=== PATIENT | male | born 1955 | race Caucasian/White ===

== ENCOUNTER → 2023-10-14 17:50 | Outpatient (REF) | payer MEDICARE, OTHER, SELFPAY | LOC: PAVMRI 17:50 | PROVIDERS: ATTENDING PHYSICIAN Orthopaedic Surgery; FAMILY PHYSICIAN Family Medicine | DX: M25.561 Pain in right knee (principal) | CPT/HCPCS: 73721 ==

== ENCOUNTER → 2024-08-29 13:09 | Outpatient (REF) | payer MEDICARE, OTHER, SELFPAY | LOC: SDSPAT 13:09 | PROVIDERS: ATTENDING PHYSICIAN Internal Medicine; FAMILY PHYSICIAN Family Medicine | DX: I48.0 Paroxysmal atrial fibrillation (principal) | CPT/HCPCS: 93005 ==

== ENCOUNTER 2024-09-19 09:32 | Day surgery (SDC) | payer MEDICARE, OTHER, SELFPAY ==
[2024-08-29 13:18] VITALS: BMI 32.9
== END 2024-09-19 11:04 | disposition home or self-care (01) ==
LOC: CATH 09:32
PROVIDERS: ATTENDING PHYSICIAN Internal Medicine; FAMILY PHYSICIAN Family Medicine
DX: I48.0 Paroxysmal atrial fibrillation (principal); I50.32 Chronic diastolic (congestive) heart failure; E78.5 Hyperlipidemia, unspecified; K21.9 Gastro-esophageal reflux disease without esophagitis; Z87.891 Personal history of nicotine dependence; Z79.01 Long term (current) use of anticoagulants
CPT/HCPCS: 92960; 93005

== ENCOUNTER 2024-12-08 16:58 | Inpatient (IN) | payer MEDICARE, OTHER, SELFPAY ==
[2024-12-08] VITALS (7 sets, daily range): BP systolic 131–175; BP diastolic 63–87; BMI 32.0
--- NOTE | 2024-12-08 15:34 | ED.GENMED ---
History of Present Illness
General
Chief Complaint: Heart Rate Problem
Source: patient, records and spouse
Exam Limitations: none
Time Seen by Provider: 12/08/24 15:26
Nursing documentation reviewed up to this point in time: agreed with
History of Present Illness
History of Present Illness:
69-year-old male with a past medical history of GERD, atrial fibrillation (on Eliquis, follows with Dr. Loera) who presents to the ER for evaluation of scapular pain. Patient reports symptoms have been ongoing for about 1 month. He reports pain
in the right scapula that radiates through to the right side of the chest. He describes the pain as sharp. No clear triggering or relieving factors noted. He says he has been taking Tums and omeprazole but none of these things seem to work. His
says that in addition to the scapular pains he has been complaining of intermittent 'heartburn' over the past month as well which is more of a substernal aching consistent with his prior GERD symptoms. Patient says that symptoms are rather
sporadic sometimes multiple times a week sometimes once a week. They have been lasting for about 10 minutes at a time. Last night he had an episode that lasted for 30 minutes and was much more intense. His symptoms never completely resolved this
morning he still has a very mild aching in the right scapular and ultimately his convinced him to go to his primary care physician. There he had an EKG that showed some subtle changes compared to his prior and was sent to the ER to be
evaluated. He denies any shortness of breath. Denies any nausea or vomiting. He denies any abdominal pains. He denies any relation to food. No swelling or pain in the legs. He denies any other complaints. He has not had any trauma to the
area. He does report in the distant past he had some muscle tears in his shoulder on the right but says that the symptoms presently do not seem to be related to movement.
Past History
Past History
ED Past Medical History: GERD
ED Past Surgical History: Other (Bilateral gynecomastia)
Social History
Tobacco: Non-smoker
Alcohol: None
Drug: None
Personal:
Living: with family
Employment: Retired
Family History
Family History: Other (Brother with history of atrial fibrillation)
Review of Systems
Review of Systems
All Other Systems: ROS reviewed and negative except as documented in HPI and ROS
Constitutional: Denies fever or chills
Respiratory: Denies cough or trouble breathing
Cardiac: Reports chest pain; Denies palpitations
ABD/GI: Reports abdominal pain; Denies nausea or vomiting
: Denies flank pain
Musculoskeletal: Reports back pain (Scapular pain); Denies edema or neck pain
Neurological: Denies dizzy or headache
Phy Exam
Physical Exam
Physical Exam:
General: Awake, alert, oriented x3; no acute distress
Head: Normocephalic, atraumatic
Eyes: Conjunctiva normal, sclera anicteric
Throat: Airway intact, handling secretions
Neck: Trachea midline, supple without meningismus
Lungs: Clear to auscultation bilaterally, no wheezing, rales, rhonchi
Heart: Regular rate and rhythm, no murmurs, gallops, or rubs appreciated
Abd: Soft, non distended, nontender to deep palpation
Back: No tenderness in the right scapular region or in the thoracic or lumbar spine along the midline
Neuro: Grossly intact
Skin: No rash in the area of concern
Extremities: No edema in extremities, no calf tenderness, equal pulses in all extremities
Scores
Heart Failure Risk
Heart Failure Risk Score: Not Applicable
Heart Score for Chest Pain Patients
STEMI patient?: Not applicable
Withdrawal Assessment of Alcohol
Withdrawal Assessment Completed?: Not applicable
Course
Orders/Labs/Results
Orders:
Orders
12/08/24 15:13
EKG [Electrocardiogram (*1)] Urgent
Reason for Study: Chest Pain
EKG- Treatment ONCE
12/08/24 15:26
CR Chest - 2 Views Urgent
Comment:
Reason For Exam: scapular pain
12/08/24 15:35
Complete Blood Count/With Diff Urgent
Comprehensive Metabolic Panel Urgent
D-Dimer Urgent
Lipase Urgent
NT-proBNP Urgent
PTT Urgent
Prothrombin Time Urgent
Troponin I Urgent
12/08/24 16:21
Aspirin Chewable [Low Strength Aspirin] 324 mg PO NOW STA
Nitroglycerin Ointment [Nitro-Bid] 1 inch TOPICAL NOW STA
12/08/24 16:27
Nitroglycerin Ointment [Nitro-Bid] 0.5 inch TOPICAL NOW STA
12/08/24 16:39
Admit/Transfer Patient As Directed
Co-Sign Provider:
Level of Care: Inpatient admission
Assign to:: IVU
Physician / Group: wilner
Diagnosis: nstemi
Reason for Hospitalization: nstemi
Expected length of stay greater than two midnights?: Yes
ELOS- Estimated Length of Stay in days: 2
I certify the patient meets the requirements for IP care: Yes
Code Status As Directed
Resuscitation Status: Full Code
PRN Pain Medication Management As Directed
May give lesser potent ordered pain med per pt: Yes
preference::
Protocol:: Medication orders for pain may be administered in a
manner that supports deferring to patient preference
when the pt is:
- Requesting an ordered lesser potent pain medication.
Least to most potent pain medications are defined
as: acetaminophen < NSAID < tramadol < opioids
(morphine, oxycodone, hydromorphone).
- Requesting a lesser dose of the same medication IF
ORDERED.
- Requesting a less intrusive route of administration
if both routes are prescribed by the provider (PO <
IV).
Abnormal Lab Results
12/08/24
15:35
RBC 4.48 L 10^6/uL
(4.70-6.10)
MCHC 32.9 L g/dL
(33.0-37.0)
Abs Immat Gran (auto) 0.1 H 10^3/uL
(0-0.05)
Absolute Monos (auto) 0.7 H 10^3/uL
(0.1-0.6)
Immature Gran % 0.7 H %
(0-0.5)
PT 15.1 H Sec
(11.4-14.6)
APTT 40.8 H Sec
(23.4-35.0)
Troponin I 0.589 H* ng/ml
12/08/24 15:35
12/08/24 15:35
Vital Signs
Initial and Last Documented VS:
Initial Vital Signs
Temp Pulse Resp BP Pulse Ox
36.4 C 74 18 175/86 100
12/08/24 15:19 12/08/24 15:19 12/08/24 15:19 12/08/24 15:19 12/08/24 15:19
Last Documented Vital Signs
Temp Pulse Resp BP Pulse Ox
36.4 C 68 17 131/84 98
12/08/24 15:19 12/08/24 16:36 12/08/24 15:29 12/08/24 16:36 12/08/24 16:30
MDM/Problems Addressed
Differential Diagnosis Includes:
Muscular pain, anginal equivalent/ACS, pulmonary embolism, pneumothorax, pneumonitis/pneumonia, referred pain from cholelithiasis/cholecystitis or pancreatitis
MDM/Problems Addressed:
69-year-old male presents for evaluation of right scapular pain intermittent for the past month more intense last night. Had some subtle EKG changes at his primary care physician's office. Hypertensive here but otherwise acceptable vitals.
Physical exam as above. He is triage EKG here shows some subtle changes in the anterior leads�very slight ST elevation with biphasic T wave. No reciprocal changes. Does not meet STEMI criteria. Plan to place an IV check labs including a CBC and a
CMP, troponin, D-dimer, coags. Will check lipase. Check a chest x-ray. Will monitor very closely reassess after the above.
Labs reviewed: CBC and CMP no clinically significant abnormalities. D-dimer negative. His troponin is elevated at 0.589; overall clinical picture concerning for ACS/NSTEMI. Will treat with some Nitropaste and give aspirin. His last dose of
Eliquis was at noon and so for this reason we will hold off on heparin for the time being. Discussed with cardiology for consultation. Discussed case with hospitalist for admission.
Discussed with cardiology who recommended initiating heparin infusion. Order placed. Admitted to hospitalist service.
Acute Exacerbation and/or Progression of Chronic Illness:
Acutely hypertensive
Acute Exacerbation and/or Progression of Chronic Illness: HTN
*Radiology
Radiology exam reviewed: radiology read reviewed
*Pulse Oximetry
SaO2: 100
Oxygen Mode of Delivery: Room air
Patient hypoxic: no (100%)
*EKG
Interpreted by ED Provider?: Yes
Heart Rate: 75
Rate: normal
Rhythm: sinus and PAC's
[place]: left axis deviation
Interval: normal interval
QRS Pattern: normal QRS
Ischemia: other (Subtle ST elevation with biphasic T wave in anterior leads)
*Critical Care Note
Total Time (30-74mins, 75-104mins- exclusive of procedures): Not Applicable
Data Reviewed
Review of Other/Old Records Reveals: Labs and Records
Source: patient, records and spouse
Patient Management
Discussion with other providers: Hospitalist (Discussed with hospitalist) and Primer Supervisor (Discussed with mastic sprayer)
Escalation/DeEscalation of care consider admission/obs:
Admission indicated
ED Attending Note
-
Portions of this chart may have been created with voice recognition software.� Occasional wrong word or��sound alike� substitutions may have occurred due to the inherent limitations of voice recognition software.
Discharge Plan
Departure
Patient Disposition: Admit
Date of Disposition: 12/08/24
Time of Disposition: 16:29
Admit to doctor: Wilner
Presentation/result/management discussed w/ accepting MD/DO: Hospitalist
Discharge Problem:
Non-ST elevation DC (NSTEMI)
Interventions
Interventions:
*Risk Screen - Suicide Last Done: 12/08/24 15:20
*General Assessment Last Done: 12/08/24 15:20
*Neglect/Abuse Screening Last Done: 12/08/24 15:20
*ED COVID-19 Vaccine History Last Done: 12/08/24 15:20
*ED Influenza Vaccine History Last Done: 12/08/24 15:20
ED- Cardiac Assessment Last Done: 12/08/24 15:20
ED- Pulmonary Assessment Last Done: 12/08/24 15:20
[2024-12-08 15:54] LABS: INR 1.14; PT 15.1 Sec (11.4-14.6)
[2024-12-08 15:55] LABS: APTT 40.8 Sec (23.4-35.0); Hematocrit 41.9 % (39.0-52.0); Hemoglobin 13.8 g/dL (13.0-18.0); Mean Corp Hgb Conc. 32.9 g/dL (33.0-37.0); Mean Corpuscular Volume 93.5 fL (80.0-94.0); Nucleated Red Blood Cells % 0 % (-); Platelet Count 232 10^3/uL (130-400); Red Cell Dist. Width 13.4 % (11.5-14.5)
[2024-12-08 15:57] LABS: D-Dimer 0.29 ug/mlFEU (0.00-0.50)
[2024-12-08 16:17] LABS: ALT (SGPT) 17 U/L (0-50); AST (SGOT) 24 U/L (17-59); Albumin 4.4 g/dl (3.5-5.0); Alkaline Phosphatase 90 U/L (38-126); Blood Urea Nitrogen 19 mg/dl (9-20); Calcium 9.3 mg/dl (8.4-10.2); Carbon Dioxide 23 mmol/L (22-30); Chloride 106 mmol/L (98-107); Glucose 99 mg/dl (70-99); Lipase 80 U/L (23-300); Potassium 4.7 mmol/L (3.5-5.1); Sodium 138 mmol/L (135-145); Total Protein 7.0 g/dl (6.3-8.2); eGFR > 60.00
[2024-12-08 16:20] LABS: Troponin I 0.589 ng/ml
[2024-12-08] MEDS: LOW STRENGTH ASPIRIN 324 MG PO (16:34)
[2024-12-08] MEDS: NITRO-BID 0.5 INCH TOPICAL (16:36)
--- NOTE | 2024-12-08 16:59 | CON.CAR ---
Addendum entered and electronically signed by Dain Loera MD 12/08/24 17:49:
Patient seen and examined in collaboration with HOUSE SUPERVISOR; agree with below.
- 69-year-old male well-known to me in the outpatient setting with paroxysmal atrial fibrillation (on Eliquis) chronic HFpEF, hyperlipidemia, and obesity presenting with scapular pain. However, the patient states that he has been having midsternal
chest pain symptoms, which she thought was heartburn over the past month and recurrent right scapular pain.
- EKG today shows some anterior T wave changes (biphasic); cardiac troponin is mildly elevated.
- NSTEMI: Start heparin drip, full-dose aspirin, nitroglycerin paste.
- Cardiac catheterization tomorrow a.m.; n.p.o. after midnight.
- Will obtain an echocardiogram tomorrow prior to cath to reassess cardiac function as patient has had recurrent symptoms over the past month.
- air sampling and monitoring.
- Start statin.
- Hold Eliquis tonight for procedure tomorrow AM.
Original Note:
Consultation
Consultation Request
Date/Time Consultation Requested: 12/08/241633
Date/Time Consultation Performed: 12/08/241644
Requesting Provider: Dr. Padilla
Performing Provider: Juliette ROCHA for Dr. Loera
Reason for Consultation: NSTEMI
Medical History
-
Chief Complaint: scapular pain
History of Present Illness:
69 y/o male (patient of Dr. Loera) with PAF (hx cardioversions) on Eliquis, HFpEF, mild HLD, obesity, and GERD who is here for evaluation of left scapular pain. This has been intermittent and lasts 2-10 minutes typically, but last night lasted
about 30 minutes. His is at bedside and reports that he has also had heartburn episodes since about 1 month ago, and one particular episode where he was clammy and nauseated. At the time of my assessment, he is pain free. He is in no distress.
He has been given ASA, heparin, nitro. There are EKG changes (anterior) and troponin is 0.6.
Past Medical History
Past Medical History: Arrhythmias, CHF, GERD and Hypercholesterolemia
Social History
Personal:
Living: With Family
Family History
Family History: Reviewed & Not Pertinent
Allergies / Home Medications
Allergy/AdvReac Type Severity Reaction Status Date / Time
shellfish derived Allergy Hives Verified 12/08/24 15:21
�Medication �Instructions �Recorded �Confirmed �Type
apixaban 5 mg tablet (Eliquis) 5 mg PO BID 30 days #60 tabs 08/09/21 09/19/24 Rx
acetaminophen 500 mg tablet 1,000 mg PO Q6HPRN PRN pain 08/22/21 09/19/24 History
(Tylenol Extra Strength)
glucosamine sulfate dipotassium Cl 2 cap PO DAILY 08/22/21 09/19/24 History
500 mg-chondroitin 400 mg capsule
(Glucosamine Sulfate 2
KCL-Chondroitin)
omeprazole 40 mg capsule,delayed 40 mg PO HS PRN indigestion 08/22/21 09/19/24 History
release
Review of Systems
-
History Source: Patient
All other systems: Negative unless noted (as noted above (scapular pain, heartburn, clammy, nausea))
Physical Exam
Vital Signs
Temp Pulse Resp BP Pulse Ox
97.5 F 68 17 131/84 98
12/08/24 15:19 12/08/24 16:36 12/08/24 15:29 12/08/24 16:36 12/08/24 16:30
Lab Results
12/08/24 15:35
12/08/24 15:35
Troponin I 0.589 ng/ml H* 12/08/24 15:35
Zvp-G-Eajxwjbgwuj Pept 2590 pg/ml 12/08/24 15:35
Physical Exam
General: Well Developed, Well Nourished and No Apparent Distress
HEENT: Normocephalic and Anicteric
Respiratory: Clear and Non Labored Respirations
Cardiac: Regular Rhythm
Musculoskeletal: No Edema
Skin: Warm and Dry
Neuro: AO x 3
Psych: Calm
Impression / Plan
-
NSTEMI:
-this diagnosis is a threat to life
-pain free
-follow EKGs and troponins
-echo in AM
-cheesemaking laborer in AM
-ASA and nitrates given. Heparin started. Continue IV heparin, which requires intensive monitoring
-add statin, check lipids and HGBA1C
PAF:
-stable in SR
-on Eliquis as OP; on heparin as above
HFpEF:
-volume stable
-check echo
HLD:
-check lipids
Obesity:
-would benefit from weight loss moving forward
Data Reviewed
-
EKG: Tracing Personally Visualized and interpreted (SR with PAC's, LAD, ST/T abnormalities anterior)
Labs: Labs Reviewed by me
Scores
HARSH for NSTEMI
Age >/= 65: Yes
>/=3 CAD risk factors-HTN,High Chol,Fam hx CAD,DM,Smoker: No
Known CAD (stenosis >/=50%): No
ASA use in past 7 days: No
Severe angina (>/= 2 episodes in 24 hrs): Yes
EKG ST Changes >/= 0.5mm: No
Positive cardiac marker: Yes
Score: 3
Risk at 14 days-mortality, new/recurrent NE, severe ischemia: Intermediate Risk- 13% Risk at 14 days- all cause mortality, new or recurrent NE, or severe recurrent ischemia requiring urgent revascularization
[2024-12-08] MEDS: HEPARIN 25000 UNITS/250 ML IV (17:50)
[2024-12-08] MEDS: HEPARIN 4000 UNITS IV (17:53)
--- NOTE | 2024-12-08 17:55 | HPS.HSE ---
Family Physician
-
Family Physician: Kade Nair
Chief Complaint
-
scapular pain
History of Present Illness
69-year-old male past medical history of paroxysmal atrial fibrillation on Eliquis, HFpEF, hyperlipidemia, GERD, obesity, presenting with scapular pain. �For around 1 month he has been having pain in his right scapula that radiates through to the
right side of the chest. �Pain is sharp. �No clear triggering or relieving factors. �Been taking Tums and omeprazole without improvement. �Is also been having heartburn over the past month intermittently which is described as substernal aching
consistent with prior GERD symptoms. �Symptoms sometimes occur a few times a week lasting 10 minutes at a time. �Last night he had an episode lasted for 30 minutes and was much more intense. �Symptoms did not resolve this morning and he still had
very mild aching in the right scapular region. �His convinced him to go to primary care physician. �EKG which showed some subtle changes compared to prior and was sent to the emergency room.
He denies any shortness of breath. �Denies nausea or vomiting. �Denies abdominal pain. �Denies any relation of the pain to food. �Denies swelling or pain in the legs. �Denies any trauma. �He has had muscle tears in his shoulder in the past on the
right but symptoms are not related to movement at this time.
Medical History
Past Medical History
Past Medical History: Reports Other (paroxysmal atrial fibrillation on Eliquis, HFpEF, hyperlipidemia, GERD, obesity)
Past Surgical History: Reports None
Social History
Tobacco: Non-smoker
Alcohol: None
Drug: None
Family History
Family History: Not pertinent
Allergies / Home Medications
Allergies reflects when Allergies were last updated in [facility].
Home Medications with original date entered in [facility]
Allergy/Medication List:
Allergies
Allergy/AdvReac Type Severity Reaction Status Date / Time
shellfish derived Allergy Hives Verified 12/08/24 15:21
Home Medications
apixaban 5 mg tablet (Eliquis) 5 mg PO BID 30 days #60 tabs 08/09/21
acetaminophen 500 mg tablet (Tylenol Extra Strength) 1,000 mg PO Q6HPRN PRN pain 08/22/21
glucosamine sulfate dipotassium Cl 500 mg-chondroitin 400 mg capsule (Glucosamine Sulfate 2 KCL-Chondroitin) 2 cap PO DAILY 08/22/21
omeprazole 40 mg capsule,delayed release 40 mg PO HS PRN indigestion 08/22/21
Review of Systems
-
Constitutional: Reports No Symptoms
EENT: Reports No Symptoms
Respiratory: Reports No Symptoms
Cardiac: Reports No Symptoms
Abdomen/GI: Reports No Symptoms
: Reports No Symptoms
Musculoskeletal: Reports No Symptoms
Skin: Reports No Symptoms
Neurological: Reports No Symptoms
Endocrine: Reports No Symptoms
Hematologic/Lymphatic: Reports No Symptoms
Psych: Reports No Symptoms
Physical Exam
Vital Signs
Vital Signs
Temp Pulse Resp BP Pulse Ox
97.5 F 63 17 167/87 98
12/08/24 15:19 12/08/24 17:15 12/08/24 15:29 12/08/24 17:00 12/08/24 17:15
Physical Exam
General: Well Developed, Well Nourished and No Apparent Distress
HEENT: NormoCephalic, Moist mucous membranes and Atraumatic
Respiratory: Clear
Cardiac: S1/S2 and Regular Rhythm; No Murmur or Rub
GI: Soft, Non Tender, Non Distended and Normal Bowel Sounds; No Organomegaly
Rectal: Deferred by Provider
Musculoskeletal: No Clubbing, No Cyanosis and No Edema
Skin: No Rash
Neuro: Nonfocal/grossly intact
Laboratory Results
-
12/08/24 15:35
12/08/24 15:35
Laboratory Results
PT 15.1 Sec (11.4-14.6) H 12/08/24 15:35
INR 1.14 12/08/24 15:35
APTT 40.8 Sec (23.4-35.0) H 12/08/24 15:35
Total Bilirubin 0.7 mg/dl (0.2-1.3) 12/08/24 15:35
AST 24 U/L (17-59) 12/08/24 15:35
ALT 17 U/L (0-50) 12/08/24 15:35
Alkaline Phosphatase 90 U/L (38-126) 12/08/24 15:35
Troponin I 0.589 ng/ml H* 12/08/24 15:35
Lipase 80 U/L (23-300) 12/08/24 15:35
Data Reviewed
-
Lab Data: Labs Reviewed by me
Old Records: Reviewed
Impression/Plan
-
IMPRESSION:
PLAN:
# NSTEMI
- Troponin of 0.589
- EKG shows sinus rhythm with PACs, T wave inversions in anterior leads
-Aspirin given, continue '
-start stain
- Trend troponins
-Check A1c and lipid panel
- Stop Eliquis and start heparin drip
-Check echo
- Cardiology consulted
-NPO past midnight for potential cath tomorrow
Paroxysmal atrial fibrillation
- Stop Eliquis and start heparin drip
Chronic HFpEF
Hyperlipidemia
GERD
Obesity
Full code
DVT prophylaxis�heparin drip
Cardiac diet
[2024-12-08 19:12] LABS: Troponin I 0.497 ng/ml
[2024-12-08] MEDS: CRESTOR 20 MG PO (20:39)
[2024-12-08 21:08] LABS: HDL Cholesterol 44 mg/dl; LDL Cholesterol, Calculated 142 mg/dl; Very Low Density Lipoprotein 27 mg/dl (0-30)
[2024-12-08 21:21] LABS: Troponin I 0.438 ng/ml
[2024-12-08] MEDS: TYLENOL 1000 MG PO (23:39)
[2024-12-09] VITALS (11 sets, daily range): BP systolic 130–175; BP diastolic 59–85
[2024-12-09 00:10] LABS: APTT 137.7 Sec (23.4-35.0)
--- NOTE | 2024-12-09 01:37 | PTCARENOTE ---
Pt admitted to room 2251 for NSTEMI. Pt NSR on monitor, VSS. C/o scapula pain 0.5/10. Heparin gtt per protocol. Pt independent with mobility. Pt oriented to the room. NPO in am
[2024-12-09 04:37] LABS: Hematocrit 36.7 % (39.0-52.0); Hemoglobin 12.6 g/dL (13.0-18.0); Mean Corp Hgb Conc. 34.3 g/dL (33.0-37.0); Mean Corpuscular Volume 94.3 fL (80.0-94.0); Nucleated Red Blood Cells % 0 % (-); Platelet Count 188 10^3/uL (130-400); Red Cell Dist. Width 13.3 % (11.5-14.5)
[2024-12-09 04:42] LABS: Troponin I 0.351 ng/ml
[2024-12-09 04:54] LABS: ALT (SGPT) 14 U/L (0-50); AST (SGOT) 20 U/L (17-59); Albumin 3.5 g/dl (3.5-5.0); Alkaline Phosphatase 99 U/L (38-126); Blood Urea Nitrogen 21 mg/dl (9-20); Calcium 8.6 mg/dl (8.4-10.2); Carbon Dioxide 22 mmol/L (22-30); Chloride 111 mmol/L (98-107); Estimated Creatinine Clearance 93 ml/min; Glucose 86 mg/dl (70-99); Potassium 4.5 mmol/L (3.5-5.1); Sodium 138 mmol/L (135-145); Total Protein 5.9 g/dl (6.3-8.2); eGFR > 60.00
--- NOTE | 2024-12-09 07:45 | PTCARENOTE ---
Assumed care of pt from prev nsg shift; Pt drowsy but easily arousable, AAOx3 w/no c/o CP or SOB. Pt does c/o 10 bilat low back pain, which is chronic for him. This RN advised resident & awaiting PRN PO Tylenol order. Pt's VSS w/HR in the
40's-60's & BP 147/77. Pt is SB/SR on telemetry monitoring. Pt NPO since 0000, awaiting cardiac cath today. Pt w/no addtl needs at this time. Call bundy within reach.
--- NOTE | 2024-12-09 08:14 | CARDSERVLU ---
Echocardiogram with [facility] completed after protocol screening completed. Allergies verified.
Patent IV site: _Left antecubital site clear____
IV site flushed with 0.9% NaCl pre and post administration.
Diluted bolus method utilized to enhance visualization of ventricular edmond.
Total volume given: __4_ mL
Patient tolerated all procedures well without complications.
--- NOTE | 2024-12-09 08:49 | W.PN.HOSP.TC ---
Today's Communication/Plan
-
Plan to do cardiac catheterization today
Assessment / Plan
Assessment / Plan
Impression
Patient is a 69-year-old male, with past medical history of paroxysmal atrial fibrillation (history of cardioversions, currently on Eliquis), HFpEF, mild hyperlipidemia, obesity and GERD who presented with right scapular pain. He has had an episode
of heartburn over the past month and recurrent right scapular pain that was usually 2 to 10 minutes and then resolved but this time it lasted for about 30 minutes and that is why he decided to come to the ER. EKG done in the ER showed biphasic T
waves along with mild troponin elevation of 0.6. He was given full dose aspirin and heparin infusion was started along with nitroglycerin.
Echo done this morning
Ejection fraction 50 to 55%, right ventricular size and systolic function within normal limits, mild to moderate MR, mild TR and apical hypokinesis
Echocardiogram in 2021 was 55 to 60%
Conditions present prior to admission
Paroxysmal atrial fibrillation
HFpEF
Hyperlipidemia
GERD
Obesity
Assessment/plan
#NSTEMI
Presented with right scapular pain, EKG with biphasic T waves in anterior leads, troponin 0.6
Troponins trending down ,proBNP 2590
Echo done this a.m.-mild decrease in ejection fraction from 55 to 60% to 50 to 55%, with newly noticed apical hypokinesis
Lipid panel looks fine except for total cholesterol of 213, lipase normal, HbA1c pending
Cardiology recommendations appreciated
Continue aspirin, heparin infusion and nitro along with statins
Eliquis on hold
Patient n.p.o. since midnight, plan to do cardiac catheterization today
#Paroxysmal atrial fibrillation
Stable, normal sinus rhythm, rate controlled
Takes Eliquis on outpatient basis which is currently on hold-patient is on heparin infusion
#HFpEF
Echo today shows an ejection fraction of 50 to 55%
No signs of volume overload
#Hyperlipidemia
Lipid panel looks good
Continue statins
#Obesity
Affects all aspects of care
DVT prophylaxis-heparin
CODE STATUS-full code
Anticipated Discharge: 24 - 48 hours
Subjective/Interval History
-
Date of Service: December 09, 2024
Patient seen and examined at bedside
Overnight no events, n.p.o. since midnight
Reports some mild pain in left scapula
Reports some back pain
Objective Data
-
Labs:
Laboratory Results
12/08/24 12/09/24 12/09/24
23:41 03:30 08:39
WBC 6.9
Hgb 12.6 L
Hct 36.7 L
Plt Count 188
APTT 137.7 H Pending
Sodium 138
Potassium 4.5
Chloride 111 H
Carbon Dioxide 22
BUN 21 H
Creatinine 1.0
Glucose 86
Calcium 8.6
Total Bilirubin 0.4
AST 20
ALT 14
Alkaline Phosphatase 99
Vital Signs:
Vital Signs
Temp Pulse Resp BP Pulse Ox
97.5 F 62 18 133/59 98
12/09/24 08:31 12/09/24 06:30 12/09/24 08:31 12/09/24 03:29 12/09/24 08:31
I&O
12/08/24 12/09/24 12/10/24
06:59 06:59 06:59
Intake Total 395 / 395
Balance 395 / 395
Review of Systems
-
All other systems: Reviewed and negative
Physical Exam
-
General: Well Developed, Well Nourished and No Apparent Distress
HEENT: Normocephalic, Atraumatic and Moist Mucous Membranes
Respiratory: Clear to Auscultation; Negative Wheezes, Rales or Rhonchi
Cardiac: Regular Rhythm and S1/S2; Negative Murmur, Rub or Gallop
GI: Soft, Nontender and Normal Bowel Sounds
Musculoskeletal: No Clubbing, No Cyanosis and No Edema
Skin: Warm and Dry
Neuro: Awake, AO x 3 and Nonfocal/Grossly Intact
Psych: Calm
[2024-12-09 09:05] LABS: APTT 96.3 Sec (23.4-35.0)
[2024-12-09 09:21] LABS: Troponin I 0.264 ng/ml
[2024-12-09] MEDS: LOW STRENGTH ASPIRIN 81 MG PO (09:38)
[2024-12-09] MEDS: TYLENOL 1000 MG PO ×2 (09:39→19:40)
[2024-12-09 10:43] LABS: Glycohemoglobin (HgbA1c) 5.7 % (4.0-5.6)
[2024-12-09] MEDS: HEPARIN 25000 UNITS/250 ML IV (12:28)
--- NOTE | 2024-12-09 13:09 | PTCARENOTE ---
Report to Sherry; Pt taken over to laboratory scientist in bed. Heparin IV drip now on hold.
[2024-12-09 14:10] LABS: ACT-LR - POC 368 Seconds (116-155)
--- NOTE | 2024-12-09 14:19 | CM ---
Chart reviewed. Patient is independent of ADLS, lives with his in a 2 S[address], 2 LYSSA, 0 DME. Patient is currently in the lab animal technician. Plan is for the patient to return home. CM to follow
[2024-12-09 14:44] LABS: ACT-LR - POC 397 Seconds (116-155)
--- NOTE | 2024-12-09 15:46 | W.PN.CD ---
Today's Communication / Plan
-
s/p BREE to LAD, 1 week triple therapy, then eliquis/plavix
Impression / Plan
-
NSTEMI:
CAD s/p PCI with BREE to LAD
-pain free
-echo with distal LAD RWMA, normal EF
-PCI with culprit prox LAD 90% stenosis s/p DESx1 (2.75x18 posted to 3.0/3.25), lots of non-culprit plaque in mid-LAD, circ OM, distal RCA
-high intensity statin for goal LDL<55
-aggressive secondary prevention with aggressive control of risk factors
-DAPT with Plavix/ASA, triple therapy with Eliquis/Plavix/ASA for 1 week, then Plavix/Eliquis for 1 year
PAF:
-stable in SR
-on Eliquis, resume tonight
HFpEF:
-volume stable
-LVEDP 30 on cath in setting of systemic hypertension
HLD:
-LDL 142, goal <55, has been started on high intensity statin
Obesity:
-would benefit from weight loss moving forward
Physical Exam
Vital Signs/Labs
Vital Signs
Temp Pulse Resp BP Pulse Ox
36.4 C 64 17 145/73 99
12/09/24 15:30 12/09/24 15:30 12/09/24 15:30 12/09/24 11:30 12/09/24 15:30
12/08/24 12/09/24 12/10/24
06:59 06:59 06:59
Actual Weight 116.3 kg
12/09/24 03:30
12/09/24 03:30
PT 15.1 Sec (11.4-14.6) H 12/08/24 15:35
INR 1.14 12/08/24 15:35
APTT 96.3 Sec (23.4-35.0) H 12/09/24 08:39
Triglycerides 139 mg/dl (10-149) 12/08/24 20:47
LDL Cholesterol, Calc 142 mg/dl 12/08/24 20:47
VLDL Cholesterol, Calc 27 mg/dl (0-30) 12/08/24 20:47
HDL Cholesterol 44 mg/dl 12/08/24 20:47
12/08/24
15:35
Mqh-Z-Tbqidxteagg Pept 2590
LAB Results
12/08/24 12/08/24 12/08/24
15:35 18:33 20:47
Troponin I 0.589 H* 0.497 H* 0.438 H*
12/09/24 12/09/24
03:30 08:39
Troponin I 0.351 H* 0.264 H*
Physical Exam
Constitutional: Comfortable
Cardiovascular: Rhythm/rate is irregular
Respiratory: Respiratory effort normal
Neuro/Psych: AO x 3
Data Reviewed
-
Date of Service: December 09, 2024
Medical Decision Making: Reviewed Test Results
EKG: Tracing Personally Visualized and interpreted
Echo: Tracing Personally Visualized and interpreted
Labs: Labs Reviewed by me
--- NOTE | 2024-12-09 16:34 | ITS.CL.PN ---
Rel[employer]er - Procedure Note
Procedure
Procedure Note:
CARDIAC CATHETERIZATION REPORT
Date of Procedure: 12/09/2024
Referring: Dr. Dain Loera MD
Indication: NSTEMI
PROCEDURE(S)
1. left heart catheterization
2. coronary angiography
3. IVUS LAD
4. PCI with BREE to LAD
ACCESS: 6F right radial artery (closure: radial band)
CATHETERS
1. 6F JR4
2. 6F JL3.5
3. 6 [place] EBU3.75 guide
MODERATE SEDATION: 60 minutes of moderate sedation was utilized. An independent medical assistant float was present to assist with and help manage the patient's level of consciousness and physiologic status.
HEMODYNAMIC DATA
LV 184/19 (EDP 30) mmHg
AO 183/95 (mean 124) mmHg
CORONARY ANGIOGRAPHY
Dominance: Right
LM: Large, normal
LAD: Large vessel giving rise to two moderate caliber diagonal branches. There is a hazy, thrombotic, 90% stenosis in the proximal vessel spanning the D1 takeoff with diffuse moderate plaque extending distally. There is a 40% stenosis spanning the
D2 takeoff. The mid to distal LAD is largely disease-free.
Ramus: Large bifurcating vessel. There is a focal 40% stenosis before the bifurcation.
LCx: Large vessel giving rise to a moderate caliber LPL branch. There is a focal 50% stenosis in the ostial circumflex.
RCA: Large vessel giving rise to a moderate caliber RPDA and two moderate caliber RPL branches. There is a 50% focal stenosis just before the bifurcation of the RPDA and RPAV.
PCI with BREE to LAD
Heparin was given to achieve ACT greater than 300. The left main was intubated with an EBU 3.75 guide catheter and a Runthrough placed in the distal LAD. Initial lesion preparation was performed with a 2.0 mm semicompliant balloon with full
expansion. IVUS was performed demonstrating heavy plaque burden throughout the proximal to mid LAD with a distal reference vessel diameter of 3.0 mm and proximal reference vessel diameter 3.25 mm. IVUS was used to identify proximal and distal
healthy landing zones which were angiographically marked to allow for determination of optimal stent length and location. Based on this a 2.75 x 18 mm [place] frontier drug-eluting stent was delivered and deployed followed by post dilation to the
distal edge with a 3.0 mm NC balloon and elsewhere with a 3.25 mm NC balloon. Final IVUS demonstrated full stent expansion, apposition, and appropriate sizing with no edge dissections. Final angiography demonstrated an excellent result with notable
diffuse moderate plaque extending distally. The decision was made not to extend the stent further as this disease was felt to be nonculprit, nonobstructive, and would require jailing of the second diagonal branch with the risk of plaque shift and
sidebranch closure. The wire and guide were removed and a TR band placed. The patient was taken to the recovery area and family updated.
RADIATION: dose 1678 mGy; DAP 86 Gy*cm2; fluoroscopy time 17.9 min
CONCLUSIONS
1. Moderately elevated LV filling pressure in the setting of systemic hypertension and and no aortic stenosis.
2. Obstructive coronary artery disease as described with culprit 90% thrombotic stenosis of the proximal LAD s/p PCI with DESx1 (2.75x18 Misael [place] BREE post-dilated with a 3.0 NC balloon to the distal edge and a 3.25 NC balloon elsewhere)
RECOMMENDATIONS
1. Triple therapy with ASA/Plavix/Eliquis for 1 week followed SAPT+OAC with Plavix/Eliquis for 1 year.
2. Aggressive secondary prevention of coronary artery disease
Copy to: Dr. Dain Loera MD (stna); Dr. Kade Nair MD (PCP)
Signed: Marko Donaldson MD, PhD
[2024-12-09] MEDS: CRESTOR 40 MG PO (17:17)
[2024-12-09] MEDS: TOPROL XL 25 MG PO (17:18)
[2024-12-09] MEDS: ELIQUIS 5 MG PO (20:06)
[2024-12-10 03:54] VITALS: BP 127/99
[2024-12-10 04:27] LABS: Hematocrit 40.4 % (39.0-52.0); Hemoglobin 13.5 g/dL (13.0-18.0); Mean Corp Hgb Conc. 33.4 g/dL (33.0-37.0); Mean Corpuscular Volume 94.6 fL (80.0-94.0); Nucleated Red Blood Cells % 0 % (-); Platelet Count 216 10^3/uL (130-400); Red Cell Dist. Width 13.3 % (11.5-14.5)
[2024-12-10 04:54] LABS: Blood Urea Nitrogen 17 mg/dl (9-20); Calcium 8.9 mg/dl (8.4-10.2); Carbon Dioxide 27 mmol/L (22-30); Chloride 108 mmol/L (98-107); Estimated Creatinine Clearance 93 ml/min; Glucose 92 mg/dl (70-99); Potassium 4.8 mmol/L (3.5-5.1); Sodium 139 mmol/L (135-145); eGFR > 60.00
--- NOTE | 2024-12-10 05:08 | PTCARENOTE ---
Pt NSR to SB overnight. VSS. Pt denies chest or rt. scapula pain. C/O chronic back pain and received PRN Tylenol. Rt wrist post cath dsg CDI. pt independent in the room. call bundy within reach
--- NOTE | 2024-12-10 07:35 | W.PN.HOSP.TC ---
Today's Communication/Plan
-
Plan for discharge.
Assessment / Plan
Assessment / Plan
Impression -69-year-old male with PMHx significant for paroxysmal A-fib s/p cardioversions, on Eliquis, HFpEF, hyperlipidemia, GERD and obesity presented with intermittent right scapular pain. In the ER he was shown to have biphasic T waves with
elevation in troponin at 0.6 and he was admitted for an NSTEMI. S/p PCI to proximal LAD.
Assessment and plan-
# NSTEMI-
Presented with right scapular pain, EKG with biphasic T waves, troponins at 0.6, on 12/08
Troponins trended down to 0.264 on 12/09
90% occlusion in proximal LAD s/p PCI-day 2 today
LDL at 142, obese, BMI of 116.3, hemoglobin A1c at 5.7.
Aggressive lifestyle modifications and statins.
Triple therapy per cardiology for 1 week then double therapy with Plavix and Eliquis for 1 year
Ejection fraction 50 to 55%, right ventricular size and systolic function within normal limits, mild to moderate MR, mild TR and apical hypokinesis
Echocardiogram in 2021 was 55 to 60%, repeat echocardiogram in 3 months.
Advance diet to regular.
#Paroxysmal atrial fibrillation
Currently in normal sinus rhythm
[id number] score-4, Eliquis on outpatient.
# Chronic HFpEF-
Stable through this admission, currently patient remains euvolemic.
Sodium and fluid restricted diet
Monitor I's and O's, trend daily weights.
#Hyperlipidemia
LDL at 142, recommend goal LDL less than 70
Continue statins
# Obesity class I BMI of 32
# DVT prophylaxis-
heparin
#CODE STATUS-
full code
Anticipated Discharge: Today
Subjective/Interval History
-
Date of Service: December 10, 2024
No complaints today
Objective Data
-
Labs:
Laboratory Results
12/10/24
04:00
WBC 7.1
Hgb 13.5
Hct 40.4
Plt Count 216
Sodium 139
Potassium 4.8
Chloride 108 H
Carbon Dioxide 27
BUN 17
Creatinine 1.0
Glucose 92
Calcium 8.9
Vital Signs:
Vital Signs
Temp Pulse Resp BP Pulse Ox
98.7 F 66 16 127/99 100
12/10/24 03:55 12/10/24 04:30 12/10/24 03:55 12/10/24 03:54 12/10/24 03:55
I&O
12/09/24 12/10/24 12/11/24
06:59 06:59 06:59
Intake Total 395 / 395 60 / 60
Balance 395 / 395 60 / 60
Review of Systems
-
All other systems: Reviewed and negative
Physical Exam
-
General: No Apparent Distress and Comfortable
HEENT: Moist Mucous Membranes
Respiratory: Clear to Auscultation and Other (No wheezes, rales and crackles)
Cardiac: Regular Rhythm, S1/S2, Murmur (no), Rub (no) and Gallop (no)
GI: Soft, Nontender, Nondistended and Normal Bowel Sounds
Musculoskeletal: No Clubbing, No Cyanosis and No Edema
Neuro: AO x 3 and No Motor Deficits
Psych: Calm
Data Reviewed
-
Medical Tests (Nuc Med, Echo etc): Report Reviewed by me, Discussed with Patient and Discussed with Family
Labs: Labs Reviewed by me, Discussed with Physician and Discussed with Patient
[2024-12-10] MEDS: PLAVIX 75 MG PO (08:32)
[2024-12-10] MEDS: ELIQUIS 5 MG PO (08:32)
[2024-12-10] MEDS: LOW STRENGTH ASPIRIN 81 MG PO (08:32)
[2024-12-10] MEDS: TYLENOL 1000 MG PO (08:36)
[2024-12-10] MEDS: TOPROL XL 25 MG PO (09:58)
--- NOTE | 2024-12-10 10:35 | W.PN.UPDATE ---
Update Note
Progress Note Update
I have independently evaluated the patient at bedside. I reviewed the case with the resident and agree with documentation as otherwise specified.
AFVSS. No events on telemetry. S/p LAD stent yesterday, also with moderate obstructive CAD and other culprit regions
AO x 4, NAD, obese. RRR, normal S1-2, no murmurs or gallops. Lungs clear bilaterally. Abdomen benign. No edema, palpable pulses, skin warm and dry. No focal neurologic deficits
#NSTEMI s/p proximal LAD PCI. Initial ECG with Wellens like pattern. Currently on high intensity statin, aspirin, Plavix, metoprolol XL. Triple therapy with Eliquis in the context of chronic AF. Will continue with triple therapy for 1 week then
discontinue aspirin and continue with Plavix and DOAC indefinitely. Follow-up OP for consideration of GLP-1 and monitoring of dyslipidemia with LDL goal <70. Encourage Mediterranean diet with carbohydrate control
#Prediabetes. A1c 5.7%. Follow-up as OP with PCP. Encourage carbohydrate controlled diet
Diet --cholesterol-lowering
Thromboprophylaxis -- DOAC
CODE STATUS -- Full
Disposition -- Discharge home
[2024-12-10 11:11] VITALS: BP 129/72
--- NOTE | 2024-12-10 13:47 | W.DCSUMMARY ---
Documented by User: Shayna Gao MD, Resident 12/10/24 13:57
Discharge Summary
Discharge Data
Date of Admission: 12/08/24
Date of Discharge: 12/10/24
-
Pending Results: No
Hospital Course
Assessment and impression- 69-year-old male with PMHx significant for paroxysmal A-fib s/p cardioversions, on Eliquis, HFpEF, hyperlipidemia, GERD and obesity presented with intermittent right scapular pain. In the ER he was shown to have biphasic
T waves with elevation in troponin at 0.6 and he was admitted for an NSTEMI/ Wellens syndrome.
Hospital course-
# Wellen syndrome/NSTEMI
During the 3-day hospital course, presented with right scapular pain and EKG consistent with biphasic T waves with elevation in troponin elevated at 0.6 on 12/08 in the ER and his echocardiogram showed apical wall hypokinesis which was new compared
to his echo in 2021, and patient was admitted for a diagnosis of Wellen syndrome. Patient underwent left heart catheterization on 12/09 with a diagnosis of 90% occlusion in proximal LAD and received PCI with a BREE on the same day. His troponins
troponins eventually trended down to 0.264 on 12/09 after angioplasty. Patient continued to remain chest pain-free with no abnormal telemetric changes into 12/10 on the day of discharge.
Patient was placed on DAPT for 1 week along with Eliquis and then on Plavix and Eliquis for 1 year.
Follow-up with cardiology and primary care within 1 week is recommended.
# ASCVD-
Patient was found to have an LDL of 142, obese with BMI of 32.0, HbA1c at 5.7 . Patient statin is changed to high intensity, Crestor 40, and was educated about aggressive lifestyle modifications.
# Chronic HFpEF-
His EF dropped from 55 to 60% in 2021 echo to 50 to 55% with mild to moderate MR, mild TR on repeat echo-12/09/2024. Patient's weight is stable, cardiology recommended outpatient echocardiogram within 3 months of discharge to reassess for cardiac
function. No clinical signs of heart failure.
# Paroxysmal atrial fibrillation-
Patient continues to remain in sinus rhythm throughout the hospitalization, his [id number] score is at 4, he was advised to continue metoprolol and Eliquis.
He was on DVT prophylaxis throughout the hospital stay.
Diagnostic workup in the hospital-
Cardiac catheterization-12/09/2024-
CONCLUSIONS
1. Moderately elevated LV filling pressure in the setting of systemic hypertension and and no aortic stenosis.
2. Obstructive coronary artery disease as described with culprit 90% thrombotic stenosis of the proximal LAD s/p PCI with DESx1 (2.75x18 Misael [place] BREE post-dilated with a 3.0 NC balloon to the distal edge and a 3.25 NC balloon elsewhere)
RECOMMENDATIONS
1. Triple therapy with ASA/Plavix/Eliquis for 1 week followed SAPT+OAC with Plavix/Eliquis for 1 year.
2. Aggressive secondary prevention of coronary artery disease
[id number]-LFF-16/2/2025-
SUMMARY
1. Ejection fraction is 50-55% by visual assessment. Moderate apical, apical septal, and apical inferior hypokinesis.
2. Right ventricular size and systolic function are within normal limits.
3. Mild to moderate mitral valve regurgitation.
4. Mild tricuspid regurgitation. Estimated pulmonary artery pressure of 30 mmHg assuming a right atrial pressure of 3 mmHg.
5. Compared to a prior transthoracic echocardiogram study from 08/14/2021, apical hypokinesis is now noted as specified with a slight decline in LVEF (previous LVEF was 55-60%). Slightly progressive mitral regurgitation is noted.
Discharge Plan
-
Patient Disposition: Home (Routine Discharge)
Discharge Diagnosis/Procedures: Angioplasty with stent to LAD
Diet: Low Cholesterol
Activity: No restrictions
Driving Restrictions: No driving for 24 hours
Bathing Restrictions: None
Blood Work: CBC, BMP and TSH in 2 weeks
Other Services: Cardiac Rehab
Instructions: Heart attack (DC)
Stand Alone Forms: DC Instructions- Cath/EP Lab
Referrals:
Dain Loera MD [Active, Cardiology] - 12/28/24 2:00 pm
Kade Nair DO [Family Provider, [facility]]
Additional Discharge Medication Instructions: You will be on triple therapy Aspirin, Plavix and Eliquis for 1 week, then STOP ASPIRIN
You will remain on Eliquis and clopidogrel indefinitely unless stopped by your family doctor
Start metoprolol succinate 25 mg daily
Prescriptions:
New
rosuvastatin 20 mg Tablet
40 mg PO QPM 30 Days Qty: 60 1RF
clopidogrel 75 mg Tablet
75 mg PO DAILY 30 Days Qty: 30 0RF
metoprolol succinate 25 mg Tablet Extended Release 24 Hr
25 mg PO DAILY 30 Days Qty: 30 0RF
aspirin 81 mg Tablet,Chewable
81 mg PO DAILY 7 Days Qty: 7 0RF
Continued
Eliquis 5 MG tablet
5 mg PO BID 30 Days Qty: 60 0RF
omeprazole 40 MG capsule,delayed release(DR/EC)
40 mg PO HS PRN (Reason: indigestion)
acetaminophen [Tylenol Extra Strength] 500 MG tablet
1,000 mg PO Q6HPRN PRN (Reason: pain)
Glucosamine Sulf-Chondroitin 1 EACH capsule
2 cap PO DAILY
Discharge Orders:
Discharge Patient (As Directed); Ordered 12/10/24
Ordered By: Shayna Gao
Care Plan Goals
Care Plan Goals:
Problem: Readiness for enhanced knowledge related to diagnosis and treatment plan
Goal: Understand your diagnosis and treatment plan needs, including medications if applicable.
Instructions: Know your diagnosis, underlying causes and treatment plan options, including medications if applicable. Consult with your health care team to learn about your diagnosis and treatment plan, including medications if applicable.
Discharge Date and Time
Discharge Date/Time: 12/10/24 11:56
Print Language: SALVADOREAN

Documented by User: Donnie Mack DO 12/10/24 14:21
Discharge Summary
Discharge Data
Date of Admission: 12/08/24
Date of Discharge: 12/10/24
Total time spent discharging patient (in min): 33
Discharge Plan
-
Patient Disposition: Home (Routine Discharge)
Discharge Diagnosis/Procedures: Angioplasty with stent to LAD
Diet: Low Cholesterol
Activity: No restrictions
Driving Restrictions: No driving for 24 hours
Bathing Restrictions: None
Blood Work: CBC, BMP and TSH in 2 weeks
Other Services: Cardiac Rehab
Instructions: Heart attack (DC)
Stand Alone Forms: DC Instructions- Cath/EP Lab
Referrals:
Dain Loera MD [Active, Cardiology] - 12/28/24 2:00 pm
Kade Nair DO [Family Provider, Family Practice]
Additional Discharge Medication Instructions: You will be on triple therapy Aspirin, Plavix and Eliquis for 1 week, then STOP ASPIRIN
You will remain on Eliquis and clopidogrel indefinitely unless stopped by your family doctor
Start metoprolol succinate 25 mg daily
Prescriptions:
New
rosuvastatin 20 mg Tablet
40 mg PO QPM 30 Days Qty: 60 1RF
clopidogrel 75 mg Tablet
75 mg PO DAILY 30 Days Qty: 30 0RF
metoprolol succinate 25 mg Tablet Extended Release 24 Hr
25 mg PO DAILY 30 Days Qty: 30 0RF
aspirin 81 mg Tablet,Chewable
81 mg PO DAILY 7 Days Qty: 7 0RF
Continued
Eliquis 5 MG tablet
5 mg PO BID 30 Days Qty: 60 0RF
omeprazole 40 MG capsule,delayed release(DR/EC)
40 mg PO HS PRN (Reason: indigestion)
acetaminophen [Tylenol Extra Strength] 500 MG tablet
1,000 mg PO Q6HPRN PRN (Reason: pain)
Glucosamine Sulf-Chondroitin 1 EACH capsule
2 cap PO DAILY
Discharge Orders:
Discharge Patient (As Directed); Ordered 12/10/24
Ordered By: Shayna Gao
Care Plan Goals
Care Plan Goals:
Problem: Readiness for enhanced knowledge related to diagnosis and treatment plan
Goal: Understand your diagnosis and treatment plan needs, including medications if applicable.
Instructions: Know your diagnosis, underlying causes and treatment plan options, including medications if applicable. Consult with your health care team to learn about your diagnosis and treatment plan, including medications if applicable.
Discharge Date and Time
Discharge Date/Time: 12/10/24 11:56
Print Language: [place]
== END 2024-12-10 11:56 | disposition home or self-care (01) | DRG 322 ==
LOC: IVU 16:58
PROVIDERS: Student in an Organized Health Care Education/Training Program; ADMITTING PHYSICIAN Hospitalist; ATTENDING PHYSICIAN Internal Medicine; CONSULT PHYSICIAN Internal Medicine; EMERGENCY PHYSICIAN Emergency Medicine; FAMILY PHYSICIAN Family Medicine
PROC: B240ZZ3 Ultrasonography of Single Coronary Artery, Intravascular (ICD-10-PCS; 2024-12-09)
PROC: B2111ZZ Fluoroscopy of Multiple Coronary Arteries using Low Osmolar Contrast (ICD-10-PCS; 2024-12-09)
PROC: 027034Z Dilation of Coronary Artery, One Artery with Drug-eluting Intraluminal Device, Percutaneous Approach (ICD-10-PCS; 2024-12-09)
PROC: 4A023N7 Measurement of Cardiac Sampling and Pressure, Left Heart, Percutaneous Approach (ICD-10-PCS; 2024-12-09)
DX: I21.4 Non-ST elevation (NSTEMI) myocardial infarction (principal); I50.32 Chronic diastolic (congestive) heart failure; E66.9 Obesity, unspecified; R73.03 Prediabetes; I25.10 Atherosclerotic heart disease of native coronary artery without angina pectoris; I11.0 Hypertensive heart disease with heart failure; I48.0 Paroxysmal atrial fibrillation; K21.9 Gastro-esophageal reflux disease without esophagitis; Z68.32 Body mass index [BMI] 32.0-32.9, adult; E78.00 Pure hypercholesterolemia, unspecified; Z79.01 Long term (current) use of anticoagulants
CPT/HCPCS: 71046; 80048; 80053; 80061; 83036; 83690; 83880; 84484; 85025; 85347; 85379; 85610; 85730; 92978; 93005; 93306; 93458; 96365; 96366; 99152; 99153; 99285; C1725; C1753; C1769; C1874; C1894; C9600; Q9950; Q9967

== ENCOUNTER 2025-01-06 16:07 | Outpatient (RCR) | payer MEDICARE, OTHER, SELFPAY | END 2025-01-06 23:59 | disposition home or self-care (01) | LOC: CRHB 16:07 | PROVIDERS: ATTENDING PHYSICIAN Internal Medicine | DX: I25.10 Atherosclerotic heart disease of native coronary artery without angina pectoris (principal); Z95.5 Presence of coronary angioplasty implant and graft; I25.2 Old myocardial infarction | CPT/HCPCS: G0422; G0423 ==

== ENCOUNTER 2025-02-03 13:22 | Outpatient (RCR) | payer MEDICARE, OTHER, SELFPAY | END 2025-02-03 23:59 | disposition home or self-care (01) | LOC: CRHB 13:22 | PROVIDERS: ATTENDING PHYSICIAN Internal Medicine; FAMILY PHYSICIAN Family Medicine | DX: I25.2 Old myocardial infarction (principal); I21.4 Non-ST elevation (NSTEMI) myocardial infarction; I25.10 Atherosclerotic heart disease of native coronary artery without angina pectoris; Z95.5 Presence of coronary angioplasty implant and graft | CPT/HCPCS: G0422; G0423 ==

== ENCOUNTER 2025-02-17 14:34 | Outpatient (RCR) | payer MEDICARE, OTHER, SELFPAY ==
[2025-02-07 11:34] LABS: HDL Cholesterol 45 mg/dl; LDL Cholesterol, Calculated 43 mg/dl; Very Low Density Lipoprotein 20 mg/dl (0-30)
== END 2025-02-17 23:59 | disposition home or self-care (01) ==
LOC: CRHB 14:34
PROVIDERS: ATTENDING PHYSICIAN Internal Medicine
DX: I25.10 Atherosclerotic heart disease of native coronary artery without angina pectoris (principal); I25.2 Old myocardial infarction (principal); I21.4 Non-ST elevation (NSTEMI) myocardial infarction (principal); Z95.5 Presence of coronary angioplasty implant and graft
CPT/HCPCS: 36415; 80061; G0422; G0423